=== PATIENT | male | born 1995 | race African-American/Black ===

== ENCOUNTER 2017-08-08 06:39 | Emergency (ER) | payer SELFPAY ==
[~2017-08-08] VITALS: Ht 180.3 cm; Wt 66.2 kg
[2017-08-08 09:50] VITALS: BP 104/84
== END 2017-08-08 10:55 | disposition home or self-care (01) ==
LOC: ED 06:39
DX: S16.1XXA Strain of muscle, fascia and tendon at neck level, initial encounter (principal); R51 Headache; I10 Essential (primary) hypertension; V49.59XA Passenger injured in collision with other motor vehicles in traffic accident, initial encounter; Y93.89 Activity, other specified; Y99.8 Other external cause status; Y92.89 Other specified places as the place of occurrence of the external cause
CPT/HCPCS: Q0162